=== PATIENT | female | born 1970 | race Caucasian/White ===

== ENCOUNTER → 2017-10-26 | Outpatient (CLI) | payer BC, OTHER | LOC: RAD 14:02 | DX: Z12.31 Encounter for screening mammogram for malignant neoplasm of breast (principal) ==

== ENCOUNTER 2019-12-31 07:42 | Emergency (ER) | payer OTHER ==
[~2019-12-31] VITALS: Ht 160 cm; Wt 75.3 kg
[2019-12-31 08:04] VITALS: BP 130/85
[2019-12-31] MEDS ORDERED: CYCLOBENZAPRINE5 MG PO (08:18)
[2019-12-31] MEDS ORDERED: TRIAMCINOLONE A80 GM TOP (08:18)
[2019-12-31] MEDS ORDERED: NORCO 5-325 TA1 EAC1 PO (08:18)
[2019-12-31] MEDS ORDERED: MOBIC15 MG PO (08:18)
== END 2019-12-31 08:25 | disposition home or self-care (01) ==
LOC: ER 07:42
DX: S39.012A Strain of muscle, fascia and tendon of lower back, initial encounter (principal); L25.9 Unspecified contact dermatitis, unspecified cause; R11.2 Nausea with vomiting, unspecified; M79.662 Pain in left lower leg; Z88.0 Allergy status to penicillin; X58.XXXA Exposure to other specified factors, initial encounter; Y93.89 Activity, other specified; Y92.89 Other specified places as the place of occurrence of the external cause; Y99.8 Other external cause status